=== PATIENT | male | born 1990 | race African-American/Black ===

== ENCOUNTER 2023-09-24 14:16 | Emergency (ER) | payer OTHER ==
--- NOTE | 2023-09-24 15:55 | RAD REPORT ---
EXAM DESCRIPTION: USExtrem Venous W Compress Bil09/24/2023 3:27 pm CLINICAL HISTORY: Leg pain COMPARISON: none FINDINGS: The common femoral, superficial femoral, greater saphenous, popliteal and posterior tibial veins bilaterally are compressible and demonstrate augmentation. Doppler demonstrates good flow. Grayscale, color and spectral analysis performed on all vessels IMPRESSION: No evidence of deep venous thrombosis involving either lower extremity.
[2023-09-24 16:11] LABS: Absolute Lymphocytes (CBC) 1.5 K/uL (0.7-4.9); Absolute Monocytes 0.5 K/uL (0.1-1.3); Absolute Neutrophil 2.2 K/uL (1.8-8.0); Basophils % 0.4 % (0-1.3); Hematocrit 42.9 % (39.6-49.0); Lymphocytes % 35.3 % (15.3-44.8); MCH 29.5 pg (27.0-35.0); MCHC 32.6 g/dL (32.0-36.0); MCV 90.4 fL (80-100); MPV 8.1 fL (7.6-11.3); Monocytes % 12.6 % (3.3-12.3); Neutrophils % 51.7 % (41.7-73.7); Nucleated Red Blood Cells % 0.1 % (0-0); Platelets 260 thou/uL (152-406); RBC Red Blood Cell Count 4.75 M/uL (4.33-5.43); Red Cell Distribution Width 13.9 % (12.1-15.2)
[2023-09-24 16:27] LABS: Anion Gap 10.2 mEq/L (5.0-15.0); Potassium 3.2 mEq/L (3.5-5.1)
--- NOTE | 2023-09-24 16:28 | RAD REPORT ---
EXAM DESCRIPTION: US - Lower Extremity Arterial Bilat - 09/24/2023 3:55 pm CLINICAL HISTORY: Leg pain COMPARISON: None FINDINGS: Right common femoral, superficial femoral popliteal, posterior tibial and dorsalis pedis arteries gen erally demonstrate triphasic waveforms The left common femoral artery demonstrates a biphasic waveform. Left superficial femoral, left popliteal, left posterior tibial and left dorsalis pedis arterial wave forms triphasic No occlusion/high-grade stenosis Grayscale, color and spectral analysis performed on all vessels IMPRESSION: No occlusion/high-grade stenosis seen
--- NOTE | 2023-09-24 16:54 | ER ---
Nurse's Notes [facility] Name: Christian Adkins Age: 33 yrs Sex: Male : 1990 Arrival Date: 09/24/2023 Time: 14:16 Bed 18 Private MD: Diagnosis: Pain in leg, unspecified-bilateral;Hypokalemia Presentation: 09/23 14:42 Chief complaint: Patient states: went out back in January, left leg has been hurting ko1 since then. Coronavirus screen: At this time, the client does not indicate any symptoms associated with coronavirus-19. Ebola Screen: No symptoms or risks identified at this time. Initial Sepsis Screen: Does the patient meet any 2 criteria? No. Patient's initial sepsis screen is negative. Does the patient have a suspected source of infection? No. Patient's initial sepsis screen is negative. Risk Assessment: Do you want to hurt yourself or someone else? Patient reports no desire to harm self or others. Onset of symptoms is unknown. 14:42 Method Of Arrival: Ambulatory ko1 14:42 Acuity: LEODAN 3 kb3 Triage Assessment: 14:46 General: Appears in no apparent distress. uncomfortable, Behavior is calm, cooperative, ko1 appropriate for age. Pain: Complains of pain in left leg. Historical: - Allergies: 14:46 No Known Allergies; ko1 - Home Meds: 14:46 None [Active]; ko1 - PMHx: 14:46 None; ko1 - PSHx: 14:46 None; ko1 - Immunization history:: Adult Immunizations up to date. - Infectious Disease History:: Denies. - Social history:: Smoking status: Patient denies any tobacco usage or history of. Screenin:21 [facility] ED Fall Risk Assessment (Adult) History of falling in the last 3 months, ap3 including since admission No falls in past 3 months (0 pts) Confusion or Disorientation No (0 pts) Intoxicated or Sedated No (0 pts) Impaired Gait No (0 pts) Mobility Assist Device Used No (0 pt) Altered Elimination No (0 pt) Score/Fall Risk Level 0 - 2 = Low Risk Oriented to surroundings, Maintained a safe environment, Educated pt \T\ family on fall prevention, incl call for assistance when getting out of bed, Assessed \T\ reinforced patient's understanding of fall precautions. Abuse screen: Denies threats or abuse. Denies injuries from another. Nutritional screening: No deficits noted. Tuberculosis screening: No symptoms or risk factors identified. Assessment: 16:25 General: Appears in no apparent distress. Behavior is calm, cooperative. Pain: ap3 Complains of pain in right leg and left leg Pain does not radiate. Neuro: Level of Consciousness is awake, alert, obeys commands, Oriented to person, place, time, situation, Test Worker are equal bilaterally Moves all extremities. Full function Gait is steady, Speech is normal, Facial symmetry appears normal. Cardiovascular: Denies chest pain, Capillary refill < 3 seconds Patient's skin is warm and dry. Respiratory: Airway is patent Respiratory effort is even, unlabored, Respiratory pattern is regular. GI: No signs and/or symptoms were reported involving the gastrointestinal system. : No signs and/or symptoms were reported regarding the genitourinary system. EENT: No signs and/or symptoms were reported regarding the EENT system. Derm: No signs and/or symptoms reported regarding the dermatologic system. Musculoskeletal: Reports pain in right leg and left leg. 17:19 Reassessment: No changes from previously documented assessment. Patient and/or family ap3 updated on plan of care and expected duration. Pain level reassessed. Patient is alert, oriented x 3, equal unlabored respirations, skin warm/dry/pink. Vital Signs: 14:42 BP 113 / 75; Pulse 97; Resp 18; Temp 98.1(O); Pulse Ox 100% on R/A; ko1 16:28 BP 132 / 80; Pulse 96; Resp 16; Pulse Ox 98% on R/A; ap3 17:17 BP 131 / 89; Pulse 90; Resp 16; Temp 98.3(O); Pulse Ox 99% on R/A; ap3 ED Course: 14:20 Patient arrived in ED. im 14:23 Higinio Graham PA is PHCP. cp 14:23 Reece Leyva DO is Attending Physician. cp 14:46 Triage completed. ko1 14:46 Arm band placed on right wrist. Patient placed in waiting room, Patient notified of ko1 wait time. 15:29 US Extremity Venous W Compression [place] In Process Unspecified. EDMS 15:50 Basic Metabolic Panel Sent. ko1 15:50 CK Sent. ko1 15:50 CBC with Diff Sent. ko1 15:51 Initial lab(s) drawn, by me, sent to lab. Inserted saline lock: 22 gauge in right ko1 antecubital area, using aseptic technique. Blood collected. 15:56 Lower Extremity Arterial Bilat US In Process Unspecified. EDMS 16:20 Melina Garcia, RN is Primary Nurse. ap3 16:29 Patient has correct armband on for positive identification. Placed in gown. Bed in low ap3 position. Call light in reach. Side rails up X 1. Provided Education on: ED process, call ryan. Client placed on continuous cardiac and pulse oximetry monitoring. NIBP monitoring applied. Door closed. Noise minimized. Lights dimmed. Moved to private room. Warm blanket given. Pillow given. 16:29 No provider procedures requiring assistance completed. ap3 17:19 IV discontinued, intact, bleeding controlled, No redness/swelling at site. Pressure ap3 dressing applied. Administered Medications: 17:18 Drug: Ketorolac IVP 15 mg IVP once Route: IVP; Site: right antecubital; ap3 17:26 Follow up: Response: No adverse reaction ap3 17:18 Drug: Potassium PO Effervescent Tablet 50 mEq PO once; dissolve in 4 ounces of water or ap3 juice Route: PO; 17:26 Follow up: Response: No adverse reaction ap3 Medication: 16:21 VIS not applicable for this client. ap3 Outcome: 16:53 Discharge ordered by MD. cp 17:19 Discharged to home ambulatory, ap3 17:19 Condition: stable 17:19 Discharge instructions given to patient, Instructed on discharge instructions, follow up and referral plans. medication usage, Demonstrated understanding of instructions, follow-up care, medications, Prescriptions given X 1, 17:26 Patient left the ED. ap3 Signatures: Dispatcher [employer] EDID Higinio Graham PA PA cp Prokisch, Amanda, RN RN ap3 Josie Selby RN RN kb3 Piper Cohn, BRUCE RN ko1 Iwona Burgess Corrections: (The following items were deleted from the chart) 15:38 14:42 Acuity: LEODAN 4 ko1 kb3
--- NOTE | 2023-09-24 16:54 | EDPHYS ---
Physician Documentation [facility] Name: Christian Adkins Age: 33 yrs Sex: Male : 1990 Arrival Date: 09/24/2023 Time: 14:16 Bed 18 Private MD: ED Physician Reece Leyva HPI: 09/23 14:55 This 33 yrs old Black Male presents to ER via Ambulatory with complaints of Leg Pain. cp 14:55 The patient presents with pain, that is chronic. The complaints affect the right leg cp and left leg. Context: resulted from an unknown cause, the patient can fully bear weight, the patient is able to ambulate, with mild difficulty. Onset: The symptoms/episode began/occurred last year, in January. Modifying factors: the symptoms are aggravated by weight bearing. Associated signs and symptoms: Pertinent positives: weakness, Pertinent negatives fever, swelling, warmth. Treatment prior to arrival includes: no previous treatment. Historical: - Allergies: 14:46 No Known Allergies; ko1 - Home Meds: 14:46 None [Active]; ko1 - PMHx: 14:46 None; ko1 - PSHx: 14:46 None; ko1 - Immunization history:: Adult Immunizations up to date. - Infectious Disease History:: Denies. - Social history:: Smoking status: Patient denies any tobacco usage or history of. ROS: 15:00 Constitutional: Positive for as per HPI, cp Exam: 15:05 Constitutional: The patient appears in no acute distress, alert, awake, cp non-diaphoretic, non-toxic, well developed, well nourished, 15:05 Head/Face: Normocephalic, atraumatic. cp 15:05 Eyes: Periorbital structures: appear normal, Conjunctiva: normal, no exudate, no injection, Sclera: no appreciated abnormality, Lids and lashes: appear normal, bilaterally, 15:05 ENT: External ear(s): are unremarkable, Nose: is normal, Mouth: Lips: moist, Oral mucosa: pink and intact, moist, Posterior pharynx: is normal, airway is patent, no erythema, no exudate, 15:05 Neck: ROM/movement: is normal, is supple, without pain, no range of motions limitations, 15:05 Chest/axilla: Inspection: normal, 15:05 Cardiovascular: Rate: normal, Rhythm: regular, Edema: is not appreciated, JVD: is not appreciated, 15:05 Respiratory: the patient does not display signs of respiratory distress, Respirations: normal, no use of accessory muscles, no retractions, labored breathing, is not present, Breath sounds: are clear throughout, no decreased breath sounds, no stridor, no wheezing, 15:05 Abdomen/GI: Inspection: abdomen appears normal, Palpation: abdomen is soft and non-tender, in all quadrants, 15:05 Back: pain, is absent, ROM is normal, 15:05 Neuro: Orientation: to person, place \T\ time. Mentation: is normal, Motor: moves all fours, no focal deficits, Sensation: is normal, Gait: is steady, Vital Signs: 14:42 BP 113 / 75; Pulse 97; Resp 18; Temp 98.1(O); Pulse Ox 100% on R/A; ko1 16:28 BP 132 / 80; Pulse 96; Resp 16; Pulse Ox 98% on R/A; ap3 17:17 BP 131 / 89; Pulse 90; Resp 16; Temp 98.3(O); Pulse Ox 99% on R/A; ap3 MDM: 14:51 Patient medically screened. 15:00 Differential diagnosis: anemia, DVT, overuse, electrolyte abnormality, neuromuscular cp disorder. 16:52 Data reviewed: vital signs, nurses notes, lab test result(s), radiologic studies, cp ultrasound, and as a result, I will discharge patient. 16:52 I considered the following discharge prescriptions or medication management in the emergency department Medications were administered in the Emergency Department. See MAR. Counseling: I had a detailed discussion with the patient and/or guardian regarding the historical points, exam findings, and any diagnostic results supporting the discharge/admit diagnosis, lab results, radiology results, the need for outpatient follow up, a family practitioner, to return to the emergency department if symptoms worsen or persist or if there are any questions or concerns that arise at home. Response to treatment: the patient's symptoms have mildly improved after treatment, and as a result, I will discharge patient. 09/23 14:51 Order name: Basic Metabolic Panel; Complete Time: 16:32 cp 09/23 16:32 Interpretation: Normal except: NA 135; K 3.2. cp 09/23 14:51 Order name: CBC with Diff; Complete Time: 16:32 cp 09/23 16:32 Interpretation: Normal except: WBC 4.20; MN% 12.6. cp 09/23 14:51 Order name: CK; Complete Time: 16:32 cp 09/23 16:32 Interpretation: Reviewed. cp 09/23 14:51 Order name: US Extremity Venous W Compression [place]; Complete Time: 16:32 cp 09/23 16:33 Interpretation: Report reviewed. cp 09/23 14:51 Order name: Lower Extremity Arterial Bilat US; Complete Time: 16:32 cp 09/23 16:33 Interpretation: Report reviewed. cp 09/23 14:51 Order name: Cardiac monitoring; Complete Time: 15:02 cp 09/23 14:51 Order name: IV Saline Lock; Complete Time: 15:50 cp 09/23 14:51 Order name: Labs collected and sent; Complete Time: 15:50 cp 09/23 14:51 Order name: O2 Per Protocol; Complete Time: 15:02 cp 09/23 14:51 Order name: O2 Sat Monitoring; Complete Time: 15:02 cp Administered Medications: 17:18 Drug: Ketorolac IVP 15 mg IVP once Route: IVP; Site: right antecubital; ap3 17:26 Follow up: Response: No adverse reaction ap3 17:18 Drug: Potassium PO Effervescent Tablet 50 mEq PO once; dissolve in 4 ounces of water or ap3 juice Route: PO; 17:26 Follow up: Response: No adverse reaction ap3 Disposition Summary: 09/24/23 16:53 Discharge Ordered Notes: Location: Home cp Problem: new cp Symptoms: have improved cp Condition: Stable cp Diagnosis - Pain in leg, unspecified - bilateral cp - Hypokalemia cp Followup: cp - With: Private Physician - When: 1 week - Reason: Recheck today's complaints Discharge Instructions: - Discharge Summary Sheet cp - Potassium Content of Foods cp - Musculoskeletal Pain cp - Hypokalemia cp Forms: - Medication Reconciliation Form cp - Antibiotic Education cp - Prescription Opioid Use cp - Patient Portal Instructions cp - Leadership Thank You Letter cp Prescriptions: - Diclofenac Sodium 75 mg Oral Tablet Sustained Release - take 1 tablet ORAL route 2 times per day; 30 tablet; Refills: 0, Product cp Selection Permitted Addendum: 09/28/2023 16:20 I was immediately available on-site in the Emergency Department for consultation in the m care of the patient. Signatures: Dispatcher [employer] EDMS Higinio Graham PA PA cp Prokisch, Amanda RN RN ap3 Reece Leyva DO DO ms3 Piper Cohn RN RN ko1
[2023-09-24] MEDS ORDERED: KETOROLAC 30 MG/ML INJ ONE (17:15)
[2023-09-24] MEDS ORDERED: POTASSIUM 25 MEQ EFFERV TAB ONE (17:15)
[2023-09-24 17:42] VITALS: BP 131/89; TEMP 98.3; O2SAT 99
== END 2023-09-24 17:26 | disposition home or self-care (01) ==
LOC: ER 14:16
DX: M79.605 Pain in left leg (principal); M79.604 Pain in right leg; E87.6 Hypokalemia
CPT/HCPCS: 36415; 80048; 82550; 85025; 93925; 93970; 96374; 99284